=== PATIENT | male | born 1980 | race African-American/Black ===

== ENCOUNTER 2020-01-26 12:33 | Emergency (ER) | payer MEDICAID ==
[2020-01-26 12:58] VITALS: BP 140/103
== END 2020-01-26 14:13 | disposition home or self-care (01) ==
LOC: ER 12:33
DX: E11.9 Type 2 diabetes mellitus without complications (principal); F17.210 Nicotine dependence, cigarettes, uncomplicated; Z76.0 Encounter for issue of repeat prescription
CPT/HCPCS: 82962

== ENCOUNTER 2020-02-05 22:11 | Emergency (ER) | payer MEDICAID ==
[~2020-02-05] VITALS: Ht 185.4 cm; Wt 89.4 kg
[2020-02-05 22:52] LABS: Urine Bacteria NONE SEEN /hpf (None Seen); Urine Blood Negative /uL (Negative); Urine Specific Gravity 1.026 (1.001-1.035); Urine WBC <1 /hpf (0 - 3)
[2020-02-05] MEDS: HYDROcodone-ACET 10/325MG TAB PO ONE (23:00)
[2020-02-05] MEDS: IBUPROFEN 600 MG TAB PO ONE (23:00)
[2020-02-05 23:13] LABS: Alcohol, Urine < 3.0 mg/dL (0-10); Amphetamine Screen, Urine NEGATIVE (NEGATIVE); Barbiturate Scree,Urine NEGATIVE (NEGATIVE); Benzodiazephine Screen, Urine NEGATIVE (NEGATIVE); Cannabinoid Screen, Urine NEGATIVE (NEGATIVE); Cocaine Screen, Urine NEGATIVE (NEGATIVE); Opiate Scree,Urine NEGATIVE (NEGATIVE); Phencyclidine Screen, Urine NEGATIVE (NEGATIVE)
[2020-02-06 01:41] LABS: Basophils # (auto) 0 10 ^3/uL (0-0.2); Basophils % (auto) 0.5 % (0.0-2.0); Eosinophils # (auto) 0.1 10 ^3/uL (0-0.8); Eosinophils % (auto) 0.6 % (0.0-7.0); Hematocrit 39.7 % (41.0-53.0); Hemoglobin 13.1 g/dL (13.5-17.5); Lymphocytes # (auto) 1.3 10 ^3/uL (0.4-5.4); Lymphocytes % (auto) 15.3 % (10.0-50.0); Mean Corpuscular Hemoglobin 27.4 pg (28.0-32.0); Monocytes # (auto) 0.9 10 ^3/uL (0-1.3); Monocytes % (auto) 10.3 % (0.0-12.0); Neutrophils # (auto) 6.2 10 ^3/uL (1.6-8.6); Neutrophils % (auto) 73.3 % (37.0-80.0); Platelet Count (auto) 237 10^3/uL (140-450); Red Blood Cells 4.79 10^6/uL (4.5-5.90); White Blood Cell 8.4 10^3/uL (4.4-10.8)
[2020-02-06] MEDS: IBUPROFEN 600 MG TAB PO ONE (01:53)
[2020-02-06] MEDS: HYDROcodone-ACET 10/325MG TAB PO ONE (01:55)
[2020-02-06 01:58] LABS: Albumin 3.4 g/dL (3.4-5.0); Calcium 8.6 mg/dL (8.5-10.1); Potassium 4.4 mmol/L (3.5-5.1)
[2020-02-06 02:00] LABS: BUN/Creatinine Ratio 18.2; Bilirubin, Total 0.3 mg/dL (0.2-1.0); Total Protein 6.8 g/dL (6.4-8.2)
[2020-02-06] MEDS ORDERED: SODIUM CHLORIDE 0.9% 1,000 ML IV ONE (02:45)
[2020-02-06] MEDS ORDERED: InsuLIN REG 1unit/0.01ml Soln (100units/ml) IV ONE (04:00)
[2020-02-06] MEDS ORDERED: HYDROcodone-ACET 10/325MG TAB PO ONE (05:30)
[2020-02-06 06:18] VITALS: BP 107/71
== END 2020-02-06 07:01 | disposition home or self-care (01) ==
LOC: EDBD 22:11 → ER 22:11
DX: R45.851 Suicidal ideations (principal); F32.9 Major depressive disorder, single episode, unspecified; E11.65 Type 2 diabetes mellitus with hyperglycemia; E86.0 Dehydration
CPT/HCPCS: 36415; 80053; 80307; 81001; 82962; 85025; 96361; 96374; 99285; J1815; J7030

== ENCOUNTER 2020-12-07 09:39 | Emergency (ER) | payer MEDICAID ==
[~2020-12-07] VITALS: Ht 182.9 cm; Wt 86.2 kg
[2020-12-07 11:21] LABS: Basophils # (auto) 0.1 10 ^3/uL (0-0.2); Basophils % (auto) 0.9 % (0.0-2.0); Eosinophils # (auto) 0 10 ^3/uL (0-0.8); Eosinophils % (auto) 0.2 % (0.0-7.0); Hematocrit 46.2 % (41.0-53.0); Hemoglobin 15.3 g/dL (13.5-17.5); Lymphocytes # (auto) 1.5 10 ^3/uL (0.4-5.4); Lymphocytes % (auto) 13.9 % (10.0-50.0); Mean Corpuscular Hemoglobin 27.4 pg (28.0-32.0); Mean Corpuscular Hgb Conc. 33.1 g/dL (32.0-36.0); Mean Corpuscular Volume 82.7 fL (80.0-100.0); Monocytes # (auto) 1.2 10 ^3/uL (0-1.3); Monocytes % (auto) 10.9 % (0.0-12.0); Neutrophils # (auto) 8.2 10 ^3/uL (1.6-8.6); Neutrophils % (auto) 74.1 % (37.0-80.0); Red Blood Cells 5.58 10^6/uL (4.5-5.90); Red Cell Distribution Width 14.7 % (11.8-14.3)
[2020-12-07 11:31] LABS: Calcium 9.1 mg/dL (8.5-10.1); Chloride 101 mmol/L (98-107); Potassium 3.7 mmol/L (3.5-5.1); Sodium 136 mmol/L (136-145)
[2020-12-07 11:40] LABS: Alanine Aminotransferase 40 U/L (16-61); Albumin 4.1 g/dL (3.4-5.0); Alkaline Phosphatase 56 U/L (45-117); Anion Gap 9 (5-15); Aspartate Aminotransferase 23 U/L (15-37); BUN/Creatinine Ratio 13.9; Bilirubin, Total 0.5 mg/dL (0.2-1.0); Blood Urea Nitrogen 23 mg/dL (7-18); Carbon Dioxide 26 mmol/L (21-32); GFR African American 59 mL/min; GFR Non-African American 49 mL/min; Glucose 197 mg/dL (74-106); Magnesium 2.4 mg/dL (1.6-2.6); Total Protein 8.6 g/dL (6.4-8.2)
[2020-12-07 20:25] VITALS: BP 121/70
== END 2020-12-07 22:05 | disposition home or self-care (01) ==
LOC: ER 09:39
DX: R45.851 Suicidal ideations (principal); F41.9 Anxiety disorder, unspecified; F32.9 Major depressive disorder, single episode, unspecified; F20.9 Schizophrenia, unspecified; F17.210 Nicotine dependence, cigarettes, uncomplicated; R00.0 Tachycardia, unspecified; Z59.0 Homelessness; Z91.14 Patient's other noncompliance with medication regimen
CPT/HCPCS: 36415; 80053; 83735; 84484; 85025; 93005

== ENCOUNTER 2023-08-26 20:55 | Emergency (ER) | payer MEDICAID ==
[~2023-08-26] VITALS: Ht 188 cm; Wt 93.1 kg
[~2023-08-26 20:55] MED LIST: METF-370 PO
[2023-08-26 21:48] LABS: Eosinophils # (auto) 0 10 ^3/uL (0-0.8); Eosinophils % (auto) 0.1 % (0.0-7.0); Hemoglobin 11.1 g/dL (13.5-17.5); Monocytes # (auto) 1.5 10 ^3/uL (0-1.3)
[2023-08-26 21:49] LABS: Basophils # (auto) 0.1 10 ^3/uL (0-0.2); Basophils % (auto) 0.4 % (0.0-2.0); Hematocrit 34.2 % (41.0-53.0); Lymphocytes # (auto) 1.4 10 ^3/uL (0.4-5.4); Lymphocytes % (auto) 10.3 % (10.0-50.0); Mean Corpuscular Hemoglobin 26.7 pg (28.0-32.0); Mean Corpuscular Hgb Conc. 32.5 g/dL (32.0-36.0); Monocytes % (auto) 11.4 % (0.0-12.0); Neutrophils # (auto) 10.4 10 ^3/uL (1.6-8.6); Neutrophils % (auto) 77.8 % (37.0-80.0); Red Blood Cells 4.17 10^6/uL (4.5-5.90); Red Cell Distribution Width 14.5 % (11.8-14.3); White Blood Cell 13.3 10^3/uL (4.4-10.8)
[2023-08-26 21:53] LABS: Alanine Aminotransferase 29 U/L (7-40); Albumin 4.4 g/dL (3.2-4.8); Alkaline Phosphatase 59 U/L (46-116); Anion Gap 6 (5-15); Aspartate Aminotransferase 30 U/L (13-40); BUN/Creatinine Ratio 19.6 (10.0-20.0); Bilirubin, Total 0.5 mg/dL (0.2-1.0); Blood Urea Nitrogen 20 mg/dL (9-23); Calcium 9.1 mg/dL (8.7-10.4); Carbon Dioxide 23 mmol/L (20-30); Chloride 111 mmol/L (98-107); Glucose 136 mg/dL (74-106); Lipase 69 U/L (12-53); Potassium 3.3 mmol/L (3.5-5.1); Sodium 140 mmol/L (136-145)
[2023-08-26 22:06] LABS: Blood Alcohol 3.4 mg/dL (<10)
[2023-08-26 23:00] VITALS: PULSE 83; RESP 18; O2SAT 98
[2023-08-27 14:27] VITALS: RESP 20; O2SAT 96
[2023-08-27 19:54] VITALS: PULSE 89; RESP 18; O2SAT 98
[2023-08-28 08:18] VITALS: PULSE 78; RESP 18; O2SAT 98
[2023-08-28 09:12] VITALS: BP 127/76; PULSE 106; RESP 18; TEMP 98.8; O2SAT 96
== END 2023-08-28 09:14 | disposition short-term general hospital (02) ==
LOC: ER 20:55
DX: R45.851 Suicidal ideations (principal); F20.9 Schizophrenia, unspecified; F41.9 Anxiety disorder, unspecified; E11.9 Type 2 diabetes mellitus without complications; F17.210 Nicotine dependence, cigarettes, uncomplicated; Z59.00 Homelessness unspecified
CPT/HCPCS: 36415; 80053; 80320; 83690; 85025

== ENCOUNTER 2023-09-29 01:45 | Emergency (ER) | payer MEDICAID ==
[~2023-09-29] VITALS: Ht 188 cm; Wt 91.0 kg
[2023-09-29 03:13] LABS: Basophils # (auto) 0.1 10 ^3/uL (0-0.2); Eosinophils # (auto) 0 10 ^3/uL (0-0.8); Eosinophils % (auto) 0.1 % (0.0-7.0); Lymphocytes # (auto) 1.5 10 ^3/uL (0.4-5.4); Lymphocytes % (auto) 11.3 % (10.0-50.0); Monocytes # (auto) 1.8 10 ^3/uL (0-1.3)
[2023-09-29 03:14] LABS: Basophils % (auto) 0.4 % (0.0-2.0); Chloride 103 mmol/L (98-107); Hematocrit 38.3 % (41.0-53.0); Hemoglobin 12.3 g/dL (13.5-17.5); Mean Corpuscular Hemoglobin 27.3 pg (28.0-32.0); Mean Corpuscular Hgb Conc. 32.2 g/dL (32.0-36.0); Mean Corpuscular Volume 84.6 fL (80.0-100.0); Monocytes % (auto) 13.9 % (0.0-12.0); Neutrophils # (auto) 9.8 10 ^3/uL (1.6-8.6); Neutrophils % (auto) 74.3 % (37.0-80.0); Potassium 3.8 mmol/L (3.5-5.1); Red Blood Cells 4.52 10^6/uL (4.5-5.90); Red Cell Distribution Width 15.1 % (11.8-14.3); Sodium 137 mmol/L (136-145); White Blood Cell 13.1 10^3/uL (4.4-10.8)
[2023-09-29 03:15] LABS: Anion Gap 12 (5-15); Calcium 9.5 mg/dL (8.7-10.4); Carbon Dioxide 22 mmol/L (20-30)
[2023-09-29 03:20] LABS: BUN/Creatinine Ratio 24.2 (10.0-20.0); Blood Urea Nitrogen 23 mg/dL (9-23); Glucose 102 mg/dL (74-106)
[2023-09-29 03:47] LABS: Acetaminophen < 2.0 UG/ML (10.0-20.0)
[2023-09-29 03:59] LABS: Blood Alcohol < 3.0 mg/dL (<10)
[2023-09-29 04:04] LABS: Salicylate < 3.0 mg/dL (2.8-20.0)
[2023-09-29 06:36] VITALS: PULSE 117; RESP 22; O2SAT 98
[2023-09-29 12:27] LABS: Amphetamine Screen, Urine Pos (NEGATIVE); Barbiturate Scree,Urine Neg (NEGATIVE); Benzodiazephine Screen, Urine Neg (NEGATIVE); Cocaine Screen, Urine Neg (NEGATIVE); Opiate Scree,Urine Neg (NEGATIVE); Phencyclidine Screen, Urine Neg (NEGATIVE)
[2023-09-29 12:28] LABS: Cannabinoid Screen, Urine Neg (NEGATIVE)
[2023-09-29 19:25] VITALS: PULSE 109; RESP 18; O2SAT 98
[2023-09-30 07:48] VITALS: PULSE 82; RESP 14; O2SAT 98
[2023-09-30 16:45] VITALS: BP 123/70; PULSE 98; RESP 16; TEMP 99.2; O2SAT 100
== END 2023-09-30 17:30 | disposition home or self-care (01) ==
LOC: ER 01:45
DX: R45.851 Suicidal ideations (principal); F20.9 Schizophrenia, unspecified; F41.9 Anxiety disorder, unspecified; E11.9 Type 2 diabetes mellitus without complications; F17.210 Nicotine dependence, cigarettes, uncomplicated; Z59.00 Homelessness unspecified
CPT/HCPCS: 36415; 80048; 80307; 80320; 80329; 85025

== ENCOUNTER 2023-10-23 09:02 | Emergency (ER) | payer MEDICAID ==
[~2023-10-23] VITALS: Ht 188 cm; Wt 88.0 kg
[2023-10-23] MEDS: SODIUM CHLORIDE 0.9% 2,000 ML IV ONE (10:08)
[2023-10-23 10:09] LABS: Basophils # (auto) 0.1 10 ^3/uL (0-0.2); Basophils % (auto) 0.6 % (0.0-2.0); Eosinophils # (auto) 0 10 ^3/uL (0-0.8); Eosinophils % (auto) 0.3 % (0.0-7.0); Hematocrit 40.7 % (41.0-53.0); Hemoglobin 13.5 g/dL (13.5-17.5); Lymphocytes # (auto) 1.3 10 ^3/uL (0.4-5.4); Lymphocytes % (auto) 12.6 % (10.0-50.0); Mean Corpuscular Hemoglobin 27.1 pg (28.0-32.0); Mean Corpuscular Hgb Conc. 33.1 g/dL (32.0-36.0); Monocytes # (auto) 0.9 10 ^3/uL (0-1.3); Monocytes % (auto) 8.2 % (0.0-12.0); Neutrophils # (auto) 8.2 10 ^3/uL (1.6-8.6); Neutrophils % (auto) 78.3 % (37.0-80.0); Red Blood Cells 4.96 10^6/uL (4.5-5.90); Red Cell Distribution Width 14.4 % (11.8-14.3); White Blood Cell 10.5 10^3/uL (4.4-10.8)
[2023-10-23 10:26] LABS: Alanine Aminotransferase 12 U/L (7-40); Albumin 4.5 g/dL (3.2-4.8); Alkaline Phosphatase 47 U/L (46-116); Anion Gap 8 (5-15); Aspartate Aminotransferase 12 U/L (13-40); BUN/Creatinine Ratio 15.5 (10.0-20.0); Blood Alcohol < 3.0 mg/dL (<10); Blood Urea Nitrogen 17 mg/dL (9-23); Calcium 9.4 mg/dL (8.5-10.1); Carbon Dioxide 27 mmol/L (20-30); Chloride 103 mmol/L (98-107); Glucose 207 mg/dL (74-106); Potassium 3.7 mmol/L (3.5-5.1); Sodium 138 mmol/L (136-145)
[2023-10-23 10:27] LABS: Bilirubin, Total 0.4 mg/dL (0.2-1.0); Total Protein 7.1 g/dL (5.7-8.2)
[2023-10-23 12:36] VITALS: BP 100/66; PULSE 115; RESP 18; TEMP 98.1; O2SAT 99
[2023-10-23 15:54] LABS: Urine Bacteria None Seen /hpf (None Seen)
[2023-10-23 16:17] LABS: Amphetamine Screen, Urine Pos (NEGATIVE); Barbiturate Scree,Urine Neg (NEGATIVE); Benzodiazephine Screen, Urine Neg (NEGATIVE); Cocaine Screen, Urine Neg (NEGATIVE); Opiate Scree,Urine Neg (NEGATIVE)
[2023-10-23 16:18] LABS: Cannabinoid Screen, Urine Neg (NEGATIVE); Phencyclidine Screen, Urine Neg (NEGATIVE)
[2023-10-23 16:27] LABS: Urine Blood Negative /uL (Negative); Urine Clarity Ex.Turbid (Clear); Urine Color Light-Orange (Yellow); Urine Mucus FEW (None Seen); Urine Protein, UAD TRACE (Negative); Urine Specific Gravity 1.035 (1.001-1.035); Urine Urobilinogen Normal (Negative); Urine WBC 7 /hpf (0 - 3); Urine pH 5.5 (5.0-9.0)
[2023-10-23 20:48] LABS: Magnesium 1.7 mg/dL (1.6-2.6)
== END 2023-10-23 18:45 | disposition left against medical advice (07) ==
LOC: ER 09:02
DX: R42 Dizziness and giddiness (principal); R00.0 Tachycardia, unspecified; F19.10 Other psychoactive substance abuse, uncomplicated; F17.210 Nicotine dependence, cigarettes, uncomplicated; Z59.00 Homelessness unspecified; Z79.899 Other long term (current) drug therapy
CPT/HCPCS: 36415; 80053; 80307; 80320; 81001; 82010; 83735; 85025; 93005; 96360; 96361; 99284; J7030

== ENCOUNTER 2023-12-23 09:03 | Emergency (ER) | payer MEDICAID ==
[~2023-12-23] VITALS: Ht 180.3 cm; Wt 98.0 kg
[2023-12-23 09:30] VITALS: BP 118/74; PULSE 103; RESP 17; TEMP 98.4; O2SAT 95
[2023-12-23] MEDS: SODIUM CHLORIDE 0.9% 1,000 ML IV ONE ×2 (09:55→12:15)
[2023-12-23 10:01] LABS: Basophils # (auto) 0.1 10 ^3/uL (0-0.2); Basophils % (auto) 0.6 % (0.0-2.0); Eosinophils # (auto) 0.1 10 ^3/uL (0-0.8); Eosinophils % (auto) 0.9 % (0.0-7.0); Hematocrit 39.1 % (41.0-53.0); Hemoglobin 13.2 g/dL (13.5-17.5); Lymphocytes # (auto) 1.4 10 ^3/uL (0.4-5.4); Lymphocytes % (auto) 14.8 % (10.0-50.0); Mean Corpuscular Hemoglobin 27.2 pg (28.0-32.0); Mean Corpuscular Hgb Conc. 33.8 g/dL (32.0-36.0); Mean Corpuscular Volume 80.5 fL (80.0-100.0); Monocytes # (auto) 1.2 10 ^3/uL (0-1.3); Monocytes % (auto) 12.5 % (0.0-12.0); Neutrophils # (auto) 6.7 10 ^3/uL (1.6-8.6); Neutrophils % (auto) 71.2 % (37.0-80.0); Red Blood Cells 4.86 10^6/uL (4.5-5.90); Red Cell Distribution Width 13.6 % (11.8-14.3); White Blood Cell 9.5 10^3/uL (4.4-10.8)
[2023-12-23 10:05] LABS: Chloride 102 mmol/L (98-107); Potassium 3.4 mmol/L (3.5-5.1); Sodium 136 mmol/L (136-145)
[2023-12-23 10:06] LABS: Anion Gap 11 (5-15); Calcium 9.2 mg/dL (8.5-10.1); Carbon Dioxide 23 mmol/L (20-30)
[2023-12-23 10:11] LABS: BUN/Creatinine Ratio 11.4 (10.0-20.0); Blood Urea Nitrogen 13 mg/dL (9-23)
[2023-12-23 10:26] LABS: Glucose 417 mg/dL (74-106)
[2023-12-23 11:08] LABS: Acetaminophen < 2.0 UG/ML (10.0-20.0)
[2023-12-23 11:32] LABS: Salicylate < 3.0 mg/dL (2.8-20.0)
== END 2023-12-23 21:06 | disposition left against medical advice (07) ==
LOC: EDBD 09:03 → ER 09:03
DX: E11.65 Type 2 diabetes mellitus with hyperglycemia (principal); F32.9 Major depressive disorder, single episode, unspecified; F41.9 Anxiety disorder, unspecified; F17.210 Nicotine dependence, cigarettes, uncomplicated; Z59.00 Homelessness unspecified
CPT/HCPCS: 36415; 80048; 80320; 80329; 82010; 85025; 96360; 96361; 99283; J7030

== ENCOUNTER 2024-01-01 14:10 | Inpatient (IN) | payer MEDICAID ==
[~2024-01-01] VITALS: Ht 188 cm; Wt 84.0 kg
[2024-01-01] MEDS: INSULIN LANTUS (GLARGINE) 1 /0.01ml (100units/ml) SC ONE (14:45)
[2024-01-01] MEDS ORDERED: DEXTROSE (50%) 50ML SYRG IV PRN ×2 (14:45→21:00)
[2024-01-01 14:56] LABS: Basophils # (auto) 0.1 10 ^3/uL (0-0.2); Basophils % (auto) 0.6 % (0.0-2.0); Eosinophils # (auto) 0 10 ^3/uL (0-0.8); Hemoglobin 14.8 g/dL (13.5-17.5); Red Cell Distribution Width 13.9 % (11.8-14.3)
[2024-01-01 14:59] LABS: Eosinophils % (auto) 0.1 % (0.0-7.0); Hematocrit 44.4 % (41.0-53.0); Lymphocytes % (auto) 12.6 % (10.0-50.0); Mean Corpuscular Hemoglobin 27.1 pg (28.0-32.0); Mean Corpuscular Hgb Conc. 33.4 g/dL (32.0-36.0); Mean Corpuscular Volume 81.1 fL (80.0-100.0); Monocytes # (auto) 1.8 10 ^3/uL (0-1.3); Monocytes % (auto) 11.3 % (0.0-12.0); Neutrophils % (auto) 75.4 % (37.0-80.0); Red Blood Cells 5.48 10^6/uL (4.5-5.90); White Blood Cell 15.9 10^3/uL (4.4-10.8)
[2024-01-01] MEDS: ACCU-CHEK COMFORT CURVE STRIP VI SCH (15:00)
[2024-01-01 15:04] LABS: Chloride 91 mmol/L (98-107); Potassium 4.9 mmol/L (3.5-5.1); Sodium 123 mmol/L (136-145)
[2024-01-01 15:05] LABS: Anion Gap 14 (5-15); Calcium 10.2 mg/dL (8.7-10.4); Carbon Dioxide 18 mmol/L (20-30)
[2024-01-01 15:10] LABS: BUN/Creatinine Ratio 11.8 (10.0-20.0); Blood Urea Nitrogen 31 mg/dL (9-23)
[2024-01-01 15:20] LABS: Glucose 749 mg/dL (74-106)
[2024-01-01] MEDS: INSULIN DRIP 100 UNIT/100ML 100 ML IV SCH (15:42)
[2024-01-01] MEDS: SODIUM CHLORIDE 0.9% 1,000 ML IV ONE (15:45)
[2024-01-01] MEDS ORDERED: ACETAMINOPHEN 325 MG TAB PO PRN (18:45)
[2024-01-01] MEDS ORDERED: ONDANSETRON HCL 4 MG/2 ML VIAL IV PRN (18:45)
[2024-01-01] MEDS ORDERED: HYDROcodone-ACET 5/325MG TAB PO PRN (18:45)
[2024-01-01] MEDS ORDERED: DOCUSATE SOD 100 MG CAP PO PRN (18:45)
[2024-01-01 20:14] LABS: Basophils # (auto) 0.1 10 ^3/uL (0-0.2); Basophils % (auto) 0.5 % (0.0-2.0); Eosinophils # (auto) 0.1 10 ^3/uL (0-0.8); Eosinophils % (auto) 0.7 % (0.0-7.0); Hematocrit 45.9 % (41.0-53.0); Hemoglobin 15.6 g/dL (13.5-17.5); Lymphocytes # (auto) 2.9 10 ^3/uL (0.4-5.4); Lymphocytes % (auto) 17.1 % (10.0-50.0); Mean Corpuscular Hemoglobin 27.3 pg (28.0-32.0); Mean Corpuscular Volume 80.5 fL (80.0-100.0); Monocytes # (auto) 2.3 10 ^3/uL (0-1.3); Monocytes % (auto) 13.8 % (0.0-12.0); Neutrophils # (auto) 11.5 10 ^3/uL (1.6-8.6); Neutrophils % (auto) 67.9 % (37.0-80.0); Nucleated Red Blood Cells % 0.2 %; White Blood Cell 16.9 10^3/uL (4.4-10.8)
[2024-01-01 20:19] LABS: Alanine Aminotransferase 21 U/L (7-40); Alkaline Phosphatase 57 U/L (46-116); Anion Gap 11 (5-15); Aspartate Aminotransferase 19 U/L (13-40); BUN/Creatinine Ratio 12.1 (10.0-20.0); Blood Urea Nitrogen 23 mg/dL (9-23); Calcium 10.3 mg/dL (8.7-10.4); Carbon Dioxide 22 mmol/L (20-30); Chloride 101 mmol/L (98-107); Potassium 4.2 mmol/L (3.5-5.1)
[2024-01-01 20:20] LABS: Bilirubin, Total 0.6 mg/dL (0.2-1.0); Total Protein 8.2 g/dL (5.7-8.2)
[2024-01-01 20:26] LABS: Sodium 134 mmol/L (136-145)
[2024-01-01 20:27] LABS: Glucose 139 mg/dL (74-106)
[2024-01-01 21:24] LABS: Urine Bacteria None Seen /hpf (None Seen)
[2024-01-01] MEDS: SODIUM CHLOR 0.9% PF (SALINE LOCK) 10ML VIAL/SYR IV SCH (22:00)
[2024-01-01 22:06] LABS: Urine Blood Negative /uL (Negative); Urine Clarity Clear (Clear); Urine Color Light-Yellow (Yellow); Urine Protein, UAD Negative (Negative); Urine Urobilinogen Normal (Negative); Urine WBC 1 /hpf (0 - 3)
[2024-01-01 22:13] LABS: Sodium Urine < 10 mmol/L (40-220)
[2024-01-01 22:19] LABS: Amphetamine Screen, Urine Neg (NEGATIVE)
[2024-01-01 22:20] LABS: Barbiturate Scree,Urine Neg (NEGATIVE); Benzodiazephine Screen, Urine Neg (NEGATIVE); Cannabinoid Screen, Urine Neg (NEGATIVE); Cocaine Screen, Urine Neg (NEGATIVE); Creatinine, Urine 66.43 mg/dL (30.0-125.0); Opiate Scree,Urine Neg (NEGATIVE); Phencyclidine Screen, Urine Neg (NEGATIVE)
[2024-01-01 23:15] VITALS: PULSE 111; RESP 20; O2SAT 96
[2024-01-02] MEDS: ACCU-CHEK COMFORT CURVE STRIP VI SCH ×2 (00:06→12:10)
[2024-01-02] MEDS: InsuLIN REG 1unit/0.01ml Soln (100units/ml) SC SCH ×2 (00:11→12:15)
[2024-01-02] MEDS ORDERED: INSULIN DRIP 100 UNIT/100ML 100 ML IV SCH (05:00)
[2024-01-02] MEDS ORDERED: DEXTROSE (50%) 50ML SYRG IV PRN ×2 (05:00→11:45)
[2024-01-02] MEDS ORDERED: ACCU-CHEK COMFORT CURVE STRIP VI SCH (06:00)
[2024-01-02] MEDS ORDERED: INSULIN LANTUS (GLARGINE) 1 /0.01ml (100units/ml) SC SCH (10:00)
[2024-01-02 15:09] LABS: Magnesium 2.2 mg/dL (1.6-2.6)
[2024-01-02 19:16] VITALS: PULSE 95; RESP 17; O2SAT 97
[2024-01-02 20:38] VITALS: BP 108/53; PULSE 95; RESP 17; TEMP 98.9; O2SAT 97
[2024-01-02 20:59] VITALS: PULSE 95; RESP 17; O2SAT 97
[2024-01-02 22:24] VITALS: BP 120/77; PULSE 89; RESP 12; TEMP 98.7; O2SAT 96
[2024-01-03] VITALS: BP 110/77; PULSE 84; RESP 16; TEMP 98.7; O2SAT 97
[2024-01-03 02:17] VITALS: BP 115/67; PULSE 93; RESP 18; TEMP 98; O2SAT 99
[2024-01-03 04:20] VITALS: BP 115/67; PULSE 93; RESP 18; TEMP 98.6; O2SAT 99
[2024-01-03 06:16] VITALS: BP 103/62; PULSE 80; RESP 12; TEMP 98.7; O2SAT 96
[2024-01-03 08:00] VITALS: PULSE 94; RESP 16; O2SAT 95
[2024-01-03 08:40] LABS: Basophils # (auto) 0 10 ^3/uL (0-0.2); Basophils % (auto) 0.5 % (0.0-2.0); Eosinophils # (auto) 0 10 ^3/uL (0-0.8); Eosinophils % (auto) 0.2 % (0.0-7.0); Hematocrit 38.8 % (41.0-53.0); Hemoglobin 13.4 g/dL (13.5-17.5); Lymphocytes # (auto) 1.5 10 ^3/uL (0.4-5.4); Lymphocytes % (auto) 16.3 % (10.0-50.0); Mean Corpuscular Hemoglobin 27.3 pg (28.0-32.0); Mean Corpuscular Hgb Conc. 34.6 g/dL (32.0-36.0); Monocytes % (auto) 11.5 % (0.0-12.0); Neutrophils # (auto) 6.4 10 ^3/uL (1.6-8.6); Neutrophils % (auto) 71.5 % (37.0-80.0); Nucleated Red Blood Cells % 0.1 %; Red Blood Cells 4.91 10^6/uL (4.5-5.90); Red Cell Distribution Width 13.5 % (11.8-14.3)
[2024-01-03 08:46] LABS: Anion Gap 6 (5-15); Calcium 8.9 mg/dL (8.7-10.4); Carbon Dioxide 25 mmol/L (20-30); Chloride 101 mmol/L (98-107); Potassium 3.7 mmol/L (3.5-5.1); Sodium 132 mmol/L (136-145)
[2024-01-03 08:52] LABS: Blood Urea Nitrogen 18 mg/dL (9-23); Glucose 126 mg/dL (74-106)
[2024-01-03] MEDS ORDERED: GLIP5TAB21 PO (08:59)
[2024-01-03] MEDS ORDERED: LEVE500T40 PO (08:59)
[2024-01-03] MEDS ORDERED: BUPR150T8 PO (08:59)
[2024-01-03] MEDS ORDERED: METF-370 PO (08:59)
[2024-01-03] MEDS ORDERED: QUET200T4 PO (08:59)
[2024-01-03] MEDS ORDERED: BUSP10TA31 PO (08:59)
[2024-01-03] MEDS ORDERED: ASPI1TAB20 PO (08:59)
[2024-01-03] MEDS ORDERED: PRA1C PO (08:59)
[2024-01-03] MEDS ORDERED: TRAZ-228 PO (08:59)
[2024-01-03] MEDS ORDERED: SAXA5TAB PO (08:59)
[2024-01-03] MEDS ORDERED: HYDR-3682 PO (08:59)
[2024-01-03 12:15] VITALS: BP 113/59; PULSE 91; RESP 16; TEMP 98.6; O2SAT 95
== END 2024-01-03 12:46 | disposition home or self-care (01) | DRG 420 ==
LOC: ER 14:10 → TELE 18:36
PROVIDERS: ADMIT Internal Medicine; ATTEND Internal Medicine
DX: E11.00 Type 2 diabetes mellitus with hyperosmolarity without nonketotic hyperglycemic-hyperosmolar coma (NKHHC) (principal); N17.0 Acute kidney failure with tubular necrosis; R65.10 Systemic inflammatory response syndrome (SIRS) of non-infectious origin without acute organ dysfunction; E11.22 Type 2 diabetes mellitus with diabetic chronic kidney disease; E86.0 Dehydration; N18.30 Chronic kidney disease, stage 3 unspecified; F41.9 Anxiety disorder, unspecified; F20.9 Schizophrenia, unspecified; F17.210 Nicotine dependence, cigarettes, uncomplicated; E87.1 Hypo-osmolality and hyponatremia; Z59.00 Homelessness unspecified; Z91.148 Patient's other noncompliance with medication regimen for other reason; Z79.84 Long term (current) use of oral hypoglycemic drugs
CPT/HCPCS: 36415; 76775; 80048; 80053; 80307; 81001; 82010; 82306; 82570; 82607; 82962; 83036; 83605; 83690; 83735; 83930; 83935; 84300; 84443; 84484; 85025; 87081; 96365; 96372; 99291; G0378; J1815

== ENCOUNTER 2024-12-29 16:32 | Emergency (ER) | payer MEDICAID ==
[~2024-12-29] VITALS: Ht 188 cm; Wt 91.6 kg
[~2024-12-29 16:32] MED LIST changes: +ASPI1TAB20 PO; +BUPR150T8 PO; +BUSP10TA31 PO; +GLIP5TAB21 PO; +HYDR-3682 PO; +LEVE500T40 PO; +PRAZ1CAP2 PO; +QUET200T4 PO; +SAXA5TAB PO; +TRAZ-228 PO
[2024-12-29] MEDS: SODIUM CHLORIDE 0.9% 1,000 ML IV ONE (17:37)
--- NOTE | 2024-12-29 19:48 | ED.PDOC ---
Psychiatric HPI Comments HPI: 44 year old male presents to the emergency department with a chief complaint of suicidal ideation. Patient states he is currently experiencing suicidal ideation and homicidal ideation. Patient states he believes he was "taken to hell" last night, currently sees "demons" describes them as black shadows with red eyes. Raphael richey was last seen in this ED 12/30/23, due to dizziness and homicidal ideation. Per previous charts, patient has a PMHx of anxiety, schizophrenia, DM, when asked denies any PMHx. No other symptoms or modifying factors present at this time. Initial Vitals BP: 142/101 HR: 68 RR: 16 O2: 98% Temp: 99.2 Past Medical History: schizophrenia, anxiety, DM Past Surgical History: Denies Social History: Denies ETOH, smoking, and drug use. Medications: Keppra, Metformin - noncompliant, Seroquel Allergies: NKDA HPI: Poor Historian. REVIEW OF SYSTEMS: CONSTITUTIONAL: Denies acute: fever, diaphoresis, chills, HEAD: Denies acute: headache, photophobia Eyes: Denies acute: Double vision, vision loss, eye pain, eye discharge. EARS: Denies acute: tinnitus, hearing loss, ear discharge, ear pain, THROAT: Denies acute: sore throat, swelling, difficulty swallowing , pain with swallowing, change in voice. NECK: Denies acute: neck pain, neck swelling, stiff neck. HEART: Denies acute : chest pain, palpitations, LUNGS: Denies acute: SOB, wheezing, cough, hemoptysis ABDOMEN: Denies acute: abdominal pain, Nausea, Vomiting, diarrhea, melena , hematemesis, hematochezia SKIN: Denies acute: rash, redness, lesions, itchiness. EXTREMITIES: Denies acute: calf pain, numbness, tingling, weakness, denies pain in extremity. Denies acute: Low back pain. Neuro: Denies acute: focal neurological deficit, motor or sensory focal neurological deficit, tremors, seizure like activity, confusion, dizziness, change in mental status, loss of bowel or bladder function, cauda equina like symptoms. : Denies acute: dysuria, hematuria, flank pain, increase in urinary frequency. PSYCH: Denies acute: PHYSICAL EXAM: General: -----no---acute distress, awake and alert. Head: normocephalic, atraumatic. Neck: supple, trachea is midline, no swelling. Throat: Normal phonation. Eyes:, no erythema, no purulent discharge, no proptosis, no icterus. Heart: regular rate, regular rhythm, no significant murmur appreciated. Lungs: no apparent respiratory distress, Able to speak in full sentences. No wheezing, no rhonchi, no crackles. No stridors Clear to auscultation bilaterally. Abdomen: non tender to palpation, non distended, soft, no guarding, no rebound, + bowel sounds. Neuro: Awake, Alert, oriented to name, self, situation, follows commands GCS=15. Speech is normal. Skin: no petechia, no purpura, no cyanosis, non-pale, not jaundice. Lower extremities: --no - Pitting edema no deformity, no focal swelling, no calf TTP. Makes eye contact. moves all four extremities. Face: no apparent facial droop. Ambulating in the ED independently. ED COURSE: DISCLAIMER: This medical document was created using an electronic medical record system with voice recognition software and computerized dictation system. Although this document has been carefully reviewed, there might still be some phonetic and typographical errors. Occasional wrong-word or "sound-alike" substitutions may have occurred due to the inherent limitations of voice recognition software. These areas are purely typographical due to imperfections of the software programs and do not reflect any compromise in the patient's medical care. Please read the chart carefully and recognize, using context, where these substitutions have occurred. Chief Complaint: Suicidal Time Seen by MD: 16:51 Primary Care Provider: NONE Reviewed Notes: Medications, Allergies Information Source: Patient Mode of Arrival: Ambulatory Severity of Pain: None Severity of Mental Status: Moderate Severity of Symptoms: Moderate Timing: Days Duration: Since onset Prehospital treatment: None Presents with: Anxiety, Suicidal Ideation, Homicidal Ideation Ingestion: None History of: Suicidal Attempt Location: None Location of pain or injury: None Past Medical History PAST MEDICAL HISTORY: Anxiety, DM, Schizophrenia Surgical History: Denies all surgeries Family History Family History: Reviewed,noncontributory to illness Social History Smoker: Cigarettes, Less Than 1 Pack/Day Alcohol: Occasionally Drugs: Denies Drug Use Lives In: Homeless Was a procedure done? Was a procedure done?: No Psych Differential Dx Psych. Differential Dx: Anxiety, Depression, Hopeless OD Differential Dx: Alcohol Abuse, Anxiety, Bipolar Disorder, Conversion Disorder, Delirium, Depression, Drug Overdose, Accidental, Intentional, Encephalopathy, Hallucinations, Homicidal, Personality Disorder, Renal Failure, Respiratory Failure, Schizophrenia, Substance Abuse, Suicidal Attempt, Suicidal Gesture Suicidal Differential Dx: Alcohol Abuse, Anxiety, Bipolar Disorder, Conversion Disorder, Depression, Homicidal, Laceration, Panic Disorder, Personality Disorder, Schizoprenia, Substance Abuse Intoxication Differential Dx: Alcohol Withdraw Syndrome, Delerium Tremens, Hallucinations, Seizures, Anticholinergic Poisoning, CVA, Dehydration, Depression, Electrolyte Imbalance, Encephalitis, Encephalopathy, Hepatitis, Hyperthermia, Intoxication, Medical Noncompliance, Personality Disorder, Schizophrenia, Seizure Disorder, Substance Abuse Disorder, Thiamine Deficiency X-Ray, Labs, Meds, VS Vital Signs Date Time Temp Pulse Resp B/P (MAP) Pulse Ox O2 Delivery O2 Flow Rate FiO2 12/29/24 18:53 98.1 94 15 106/69 (81) 98 98.1 12/29/24 16:59 99.2 68 16 142/101 (115) 98 99.2 Lab Test 12/29/24 21:35 12/29/24 19:59 Range/Units Lactic Acid Level 2.1 *H 2.9 *H 0.4-2.0 mmol/L White Blood Count 12.4 H 4.4-10.8 10^3/uL Red Blood Count 5.01 4.5-5.90 10^6/uL Hemoglobin 13.1 L 13.5-17.5 g/dL Hematocrit 40.5 L 41.0-53.0 % Mean Corpuscular Volume 80.9 80.0-100.0 fL Mean Corpuscular Hemoglobin 26.2 L 28.0-32.0 pg Mean Corpuscular Hemoglobin Concent 32.4 32.0-36.0 g/dL Red Cell Distribution Width 14.2 11.8-14.3 % Platelet Count 278 140-450 10^3/uL Mean Platelet Volume 8.5 6.9-10.8 fL Neutrophils (%) (Auto) 78.1 37.0-80.0 % Lymphocytes (%) (Auto) 9.8 L 10.0-50.0 % Monocytes (%) (Auto) 11.4 0.0-12.0 % Eosinophils (%) (Auto) 0.0 0.0-7.0 % Basophils (%) (Auto) 0.7 0.0-2.0 % Neutrophils # (Auto) 9.7 H 1.6-8.6 10 ^3/uL Lymphocytes # (Auto) 1.2 0.4-5.4 10 ^3/uL Monocytes # (Auto) 1.4 H 0-1.3 10 ^3/uL Eosinophils # (Auto) 0 0-0.8 10 ^3/uL Basophils # (Auto) 0.1 0-0.2 10 ^3/uL Nucleated Red Blood Cells 0.1 % Sodium Level 140 136-145 mmol/L Potassium Level 3.9 3.5-5.1 mmol/L Chloride Level 108 H 98-107 mmol/L Carbon Dioxide Level 17 L 20-31 mmol/L Anion Gap 15 5-15 Blood Urea Nitrogen 24 H 9-23 mg/dL Creatinine 1.96 H 0.700-1.30 mg/dL Glomerular Filtration Rate Calc 42 >90 mL/min BUN/Creatinine Ratio 12.2 10.0-20.0 Serum Glucose 233 H 74-106 mg/dL Calcium Level 10.5 H 8.7-10.4 mg/dL Total Bilirubin 0.3 0.2-1.0 mg/dL Aspartate Amino Transferase (AST) 39 13-40 U/L Alanine Aminotransferase (ALT) 59 H 7-40 U/L Alkaline Phosphatase 48 46-116 U/L Total Protein 8.0 5.7-8.2 g/dL Albumin 5.2 H 3.2-4.8 g/dL Current Medications Medications (Trade) Dose Ordered Sig/Vadim Route Start Time Stop Time Status Last Admin Sodium Chloride 1,000 ml @ 1,000 mls/hr Q1H ONCE IV 12/29/24 17:00 12/29/24 17:59 DC 12/29/24 17:37 Time of 1ST Reevaluation: 22:13 (Patient has been medically cleared awaiting tele psych evaluation. Patient has been cooperative after Ativan. Patient eating and drinking food in the ED.) Reevaluation 1ST: Improved Patient Education/Counseling: Diagnosis, Treatment Family Education/Counseling: No Family Present Assigned to DrLisa The care of this patient was signed out to my colleague Dr. Gill. Patient has been medically cleared. Patient is awaiting tele psych and social service evaluation and possible transfer patient to a psychiatric facility for further evaluation. Comments Patient presented with the above HPI.--anxiety/psychiatric evaluation/overdose----workup was initiated. patient was found with the above mentioned diagnosis. the following medications were ordered: please refer to order lists of meds and tests obtained by myself Dr. Geronimo. Patient ED course and VS have been stabilized. Patient has been reassessed in the ED and remained in a stable condition. Pertinent incidental findings were discussed with the patient and/or family. Patient/family voices understanding and is agreeable with plan. Patient has been observed in the ED adequate length of time to insure improvement/stability. Escalation of care considered: Consideration of escalation to observation or admission Poison control was consulted. Patient was medically cleared. Patient is awaiting social service and tele psych evaluation. All the reports of any imaging studies that were ordered by myself were reviewed by myself. Departure 1 Departure Time of Disposition: 21:52 Impression: Primary Impression: Suicidal ideation Additional Impressions: Homicidal ideation Patient needs psychiatric hold for evaluation Disposition: 30 STILL A PATIENT Admit to: Tele Condition: Guarded Discharged With: Self Critical Care Note Critical Care Time?: Yes (45 min-critical care time only) I personally scribed for BRENDA GERONIMO DO ([email or web address]) on 12/29/24 at 19:48. Electronically submitted by Mary Dennis ([email or web address]). I personally scribed for BRENDA GERONIMO DO ([email or web address]) on 12/29/24 at 21:58. Electronically submitted by Mary Dennis ([email or web address]). BRENDA GERONIMO DO Dec 29, 2024 19:48
[2024-12-29 20:32] LABS: Hemoglobin 13.1 g/dL (13.5-17.5); Mean Corpuscular Volume 80.9 fL (80.0-100.0)
[2024-12-29 20:33] LABS: Hematocrit 40.5 % (41.0-53.0); Mean Corpuscular Hemoglobin 26.2 pg (28.0-32.0); Nucleated Red Blood Cells % 0.1 %
[2024-12-29 20:44] LABS: Alkaline Phosphatase 48 U/L (46-116); Anion Gap 15 (5-15); BUN/Creatinine Ratio 12.2 (10.0-20.0); Bilirubin, Total 0.3 mg/dL (0.2-1.0); Potassium 3.9 mmol/L (3.5-5.1); Sodium 140 mmol/L (136-145); Total Protein 8.0 g/dL (5.7-8.2)
[2024-12-29 20:47] LABS: Carbon Dioxide 17 mmol/L (20-31); Chloride 108 mmol/L (98-107)
[2024-12-29 20:48] LABS: Alanine Aminotransferase 59 U/L (7-40); Albumin 5.2 g/dL (3.2-4.8); Blood Urea Nitrogen 24 mg/dL (9-23); Calcium 10.5 mg/dL (8.7-10.4); Glucose 233 mg/dL (74-106)
[2024-12-29 20:56] LABS: Lactic Acid w/Reflex 2.9 mmol/L (0.4-2.0)
--- NOTE | 2024-12-30 01:44 | DVHINCON2 ---
Date of Service if different f: Dec 30, 2024 Time of Service: 01:12 Consult Consult Note PSYCHIATRY ED NEW CONSULT HPI: 44 yo pt with PPH of schizophrenia and anxiety presents to ED BIBA for safety, psychiatric stabilization, and possible med initiation/optimization in setting of psychosis and passive SI/HI. Psychiatry consulted for safety evaluation and recommendations in context of current presentation Pt reports over past several weeks experiencing worsening AVH and believes being "taken to hell" and VH of demons and black shadows resulting in vague passive SI and HI (towards no one in specific). Pt recently released from retirement for ?vandalism charge and ic currently on parole and does not have adequate housing and lack of community MH services Currently rx'd buspar 30 mg bid and quetiapine 800 mg qhs while incarcerated, overall med compliant although hx of med noncompliance noted Denies ETOH, THC or IDU prior to admission although mild hx of meth dependency, never IVDU, never previously in any drug/etoh tx programs in past, sober for past year , several adult children with no/limited contact, unemployed, lives by self/couch surfing, no/limited support system noted Unknown trauma hx. Denies FH of psych hospitalizations, suicide attempts, or completed suicides No acute medical/chronic pain issues, hx of seizures/TBI, or recent head injuries, NKDA Some hx of SI/SIB via cutting/SA via OD x2 resulting in several prior psych hospitalizations/5150 holds, most recent SA several weeks ago via OD, most recent inpt psych admission over a year ago. Remote hx of aggression/assaultive behaviors, recent incarceration for ?vandalism, released several weeks ago, currently on parole. Denies recent hx of impulsivity, attention seeking behaviors, anger outbursts, emotional dysregulation, mood reactivity, or engaging in risky behaviors. Does not have access to firearms MSE: General Appearance/Behavior: Alert/awake; appears stated age, fair grooming/hygiene; calm and cooperative, marginal eye contact, bit guarded, no PMA/PMR Speech: coherent, rrr Thought Process: L/L/concrete Thought Content: Abnormal Thoughts/Perceptions: denies dissociative symptoms Homicidality / Violent Thoughts: adamantly denies HI Suicidality: + SI Hallucinations: +VH Delusions: denies paranoia, persecutory, or grandiose delusions Obsessions /compulsions: None Judgment/Insight: fair/marginal Mood & Affect: "i don't know", with mood-congruent, somewhat guarded/appropriate Orientation: oriented x 3 Attention/Concentration: appears intact Cognition: grossly intact Assessment: 44 yo pt with PPH of schizophrenia and anxiety presents to ED BIBA for safety, psychiatric stabilization, and possible med initiation/optimization in setting of psychosis and passive SI/HI. Pt currently expressing some SI, also p/w threatening AVH. Limited protective factors presently. Pt recently released from retirement for ?vandalism charge and is currently on parole and does not have adequate housing and lack of community services. Pt agrees to talk with staff instead of acting on any suicidal feelings while in ED. Pt medically cleared in ED. Denies any recent meth use Acute safety risk remains low/moderate and is appropriate for inpatient psychiatric admission for further safety, psychiatric stabilization, and possible medication initiation/optimization. Pt willing to transfer to inpt psych facility voluntarily. Consider 5150 hold for DTS ONLY if needed for transfer or if no voluntary beds are available Primary Diagnosis: Psychotic disorder unspecified. R/p Schizophrenia Recommend VOL transfer to inpt psych facility for higher level of care 1:1 sitter is recommended Maintain suicide/elopement precautions Recommend continuation of current outpt med regimen - buspar 30 mg bid and quetiapine 800 mg qhs (first dose now) Defer any psychotropic med changes to accepting inpt psych facility Risks/benefits/alternative treatments discussed, informed consent provided by pt If patient later refuses voluntary hospitalization/ requests to be discharged from ED prior to transfer, please reconsult telepsych services to evaluate for 5150 hold. Pt verbalized understanding and is receptive to above tx plan This case was discussed with ED nurse/provider and all parties in agreement with above tx plan Lester Munguia MD Plan discussed with: Patient LESTER MUNGUIA MD Dec 30, 2024 01:44
[2024-12-30 02:10] LABS: Benzodiazephine Screen, Urine Neg (NEGATIVE)
[2024-12-30 02:11] LABS: Amphetamine Screen, Urine Pos (NEGATIVE); Barbiturate Scree,Urine Neg (NEGATIVE); Cannabinoid Screen, Urine Neg (NEGATIVE); Cocaine Screen, Urine Neg (NEGATIVE); Opiate Scree,Urine Neg (NEGATIVE); Phencyclidine Screen, Urine Neg (NEGATIVE)
[2024-12-30] MEDS: SODIUM CHLORIDE 0.9% 1,000 ML IV ONE ×2 (11:01→13:32)
[2024-12-30] MEDS: LORazepam 2MG/ML-1ML VIAL IV ONE (11:01)
[2024-12-30] MEDS: LORazepam 2MG/ML-1ML VIAL ONE (11:01)
[2024-12-30 11:08] VITALS: PULSE 108; RESP 17; O2SAT 98
--- NOTE | 2024-12-30 13:06 | DVHINCON2 ---
Date of Service if different f: Dec 30, 2024 Consultation ([facility]) Progress: Better Labs Laboratory Tests Test 12/29/24 19:59 12/29/24 21:35 12/30/24 01:44 White Blood Count 12.4 10^3/uL (4.4-10.8) Red Blood Count 5.01 10^6/uL (4.5-5.90) Hemoglobin 13.1 g/dL (13.5-17.5) Hematocrit 40.5 % (41.0-53.0) Mean Corpuscular Volume 80.9 fL (80.0-100.0) Mean Corpuscular Hemoglobin 26.2 pg (28.0-32.0) Mean Corpuscular Hemoglobin Concent 32.4 g/dL (32.0-36.0) Red Cell Distribution Width 14.2 % (11.8-14.3) Platelet Count 278 10^3/uL (140-450) Mean Platelet Volume 8.5 fL (6.9-10.8) Neutrophils (%) (Auto) 78.1 % (37.0-80.0) Lymphocytes (%) (Auto) 9.8 % (10.0-50.0) Monocytes (%) (Auto) 11.4 % (0.0-12.0) Eosinophils (%) (Auto) 0.0 % (0.0-7.0) Basophils (%) (Auto) 0.7 % (0.0-2.0) Neutrophils # (Auto) 9.7 10 ^3/uL (1.6-8.6) Lymphocytes # (Auto) 1.2 10 ^3/uL (0.4-5.4) Monocytes # (Auto) 1.4 10 ^3/uL (0-1.3) Eosinophils # (Auto) 0 10 ^3/uL (0-0.8) Basophils # (Auto) 0.1 10 ^3/uL (0-0.2) Nucleated Red Blood Cells 0.1 % Sodium Level 140 mmol/L (136-145) Potassium Level 3.9 mmol/L (3.5-5.1) Chloride Level 108 mmol/L (98-107) Carbon Dioxide Level 17 mmol/L (20-31) Anion Gap 15 (5-15) Blood Urea Nitrogen 24 mg/dL (9-23) Creatinine 1.96 mg/dL (0.700-1.30) Glomerular Filtration Rate Calc 42 mL/min (>90) BUN/Creatinine Ratio 12.2 (10.0-20.0) Serum Glucose 233 mg/dL (74-106) Calcium Level 10.5 mg/dL (8.7-10.4) Total Bilirubin 0.3 mg/dL (0.2-1.0) Aspartate Amino Transf (AST/SGOT) 39 U/L (13-40) Alanine Aminotransferase (ALT/SGPT) 59 U/L (7-40) Alkaline Phosphatase 48 U/L (46-116) Total Protein 8.0 g/dL (5.7-8.2) Albumin 5.2 g/dL (3.2-4.8) Lactic Acid Level 2.1 mmol/L (0.4-2.0) Urine Opiates Screen Neg (NEGATIVE) Urine Fentanyl Screen Neg (NEGATIVE) Urine Barbiturates Screen Neg (NEGATIVE) Urine Phencyclidine Screen Neg (NEGATIVE) Urine Amphetamines Screen Pos (NEGATIVE) Urine Benzodiazepines Screen Neg (NEGATIVE) Urine Cocaine Screen Neg (NEGATIVE) Urine Cannabinoids Screen Neg (NEGATIVE) Appetite: Very Good Side effects of medications: No Appearance: Stated age, Disheveled Psychomotor activity: Restless Behavioral: Other (guarded, superficially cooperative) Eye contact: Avoids Speech: WNL, Soft Affect: Inappropriate to mood, Guarded Mood: Euthymic, Anxious Thought processes: Linear/Goal-directed Thought content: Paranoid, Paucity of thoughts Suicidal ideations: Absent Homicidal ideations: Absent Orientation: Person, Place, Time, Situation Memory intact: Recent Intellect: Average Abstractability: [place] Concentration: Limited Attention: Limited Judgement: Marginal Insight: Limited Vitals Vital Signs Date Time Temp Pulse Resp B/P (MAP) Pulse Ox O2 Delivery O2 Flow Rate FiO2 12/30/24 11:08 108 17 98 Room Air* 0 21 12/30/24 11:07 98.3 105/75 (85) 98.3 Treatment plan discussed: With staff Medication adjusted: No Labs ordered: No Psychotherapy provided: Yes Type: Voluntary Diagnosis: Stimulant use disorder. Unspecified psychosis. Plan : Based on eval, the pt appears to be guarded, superficially cooperative, eager to leave the hospital but does not give much info and seems to be trying to manipulate the narrative to appear to be doing better than he is. He does appear to be somewhat internally preoccupied and paranoid, but seems to be able to cover it up well. Dr. Amaya who evaluated him yesterday and has observed him today feels strongly that the pt is at high risk of something drastic in terms of DTS/DTO in the community given the persistence of psychosis and pt's inappropriate/scary affect. Based on my evaluation and Dr. Amaya's insights, the patient needs to be on a 5150 and admit to inpatient psychiatry on involuntary basis for acute stabilization. History of Present Illness Reason for Consult : Psychosis. Interval HPI : Pt was seen by Dr. Munguia this morning at 1:44 am which is the same time that the lab tox screen became available showing +ve for stimulants. Pt had been endorsing VH and AH as well has thoughts of wanting to be . Dr. Munguia recommended voluntary psych admission and to get a f/u eval with telepsych in case the pt wanted to leave without going to the hospital for possible 5150 initiation. Pt says that he hadn't been sleeping for a few nights, was paranoid, had used meth 2 days ago. Pt got Seroquel last night and it helped him sleep and he now feels better. Pt admits to having VH and AH last night. Pt feels his mind is completely better now. Pt denies feeling suicidal any longer, says mood is cool. Social History : Pt has a place to stay and [facility] [place]. Pt recently got released from retirement on 12/20/24 and has a room available at [facility] as of 01/02/25 but will stay with family until then. Pt says he doesn't want to stay in the hospital waiting for a bed. Assessment/Diagnosis/Plan Reviewed: Consults, Care Plan, Labs, Medications HAIDER LOPEZ MD Dec 30, 2024 13:06
[2024-12-30 13:34] LABS: Chloride 106 mmol/L (98-107); Potassium 3.7 mmol/L (3.5-5.1); Sodium 137 mmol/L (136-145)
[2024-12-30 13:35] LABS: Anion Gap 8 (5-15); Calcium 9.8 mg/dL (8.7-10.4); Carbon Dioxide 23 mmol/L (20-31)
[2024-12-30 13:40] LABS: BUN/Creatinine Ratio 17.0 (10.0-20.0); Blood Urea Nitrogen 24 mg/dL (9-23); Glucose 212 mg/dL (74-106)
[2024-12-30 13:46] LABS: Lactic Acid w/Reflex 2.1 mmol/L (0.4-2.0)
[2024-12-31 07:30] VITALS: BP 126/71; PULSE 112; RESP 16; TEMP 99.1; O2SAT 98
== END 2024-12-31 10:53 | disposition left against medical advice (07) ==
LOC: ER 16:32
DX: F29 Unspecified psychosis not due to a substance or known physiological condition (principal); R45.850 Homicidal ideations; R45.851 Suicidal ideations; F41.9 Anxiety disorder, unspecified; E11.9 Type 2 diabetes mellitus without complications; F15.10 Other stimulant abuse, uncomplicated; F17.210 Nicotine dependence, cigarettes, uncomplicated; F20.9 Schizophrenia, unspecified; Z79.899 Other long term (current) drug therapy
CPT/HCPCS: 36415; 80048; 80053; 80307; 83605; 85025; 96360; 99285; J7030